=== PATIENT | male | born 1955 | race Caucasian/White ===

== ENCOUNTER 2018-03-24 16:23 | Inpatient (IN) | payer MEDICARE, MEDICAID ==
[~2018-03-24] VITALS: Ht 167.6 cm; Wt 80.0 kg
[~2018-03-24 16:23] MED LIST: FAMO-1 PO; LOVA40TA76 PO; MAGN400T29 PO; MONT10TA21 PO; MOT200T PO; OLAN2.5T3 PO; SYN0.025T PO; [UNRECOGNIZED DRUG - OTHER]; [UNRECOGNIZED DRUG - OTHER]
[2018-03-24 17:27] LABS: BASOPHILS % (AUTO) 0.4 % (0-1); EOSINOPHILS # (AUTO) 0.1 X10'3 (0-0.9); EOSINOPHILS % (AUTO) 1.5 % (0-6); HEMATOCRIT 41.2 % (42.0-52.0); HEMOGLOBIN 14.3 g/dl (14.0-17.9); LYMPHOCYTES # (AUTO) 2.3 X10'3 (1.1-4.8); MEAN CORPUSCULAR HEMOGLOBIN 31.8 PG (27.0-31.0); MEAN CORPUSCULAR HGB CONC 34.6 % (33.0-36.5); MEAN CORPUSCULAR VOLUME 91.8 FL (78-98); MEAN PLATELET VOLUME 6.4 FL (7.4-10.4); MONOCYTES # (AUTO) 0.6 X10'3 (0-0.9); MONOCYTES % (AUTO) 7.5 % (2-12); NEUTROPHILS # (AUTO) 5.4 X10'3 (1.8-7.7); NEUTROPHILS % (AUTO) 63.6 % (42-75); PLATELET COUNT 251 X10'3 (140-440); RED BLOOD COUNT 4.49 X10'6 (4.70-6.10); RED CELL DISTRIBUTION WIDTH 13.8 % (11.5-14.5); WHITE BLOOD COUNT 8.5 X10'3 (4.5-11.0)
[2018-03-24 17:38] LABS: INR 1.1 INR; PARTIAL THROMBOPLASTIN TIME 30 SECONDS (22-32); PROTHROMBIN TIME 11.2 SECONDS (9.0-12.0)
[2018-03-24 17:41] LABS: ALANINE AMINOTRANSFERASE 37 U/L (12-78); ALBUMIN 3.9 G/DL (3.4-5.0); ALKALINE PHOSPHATASE 68 IU/L (46-116); ANION GAP 7 (8-16); ASPARTATE AMINO TRANSFERASE 26 U/L (10-37); BILIRUBIN,TOTAL 0.4 MG/DL (0.1-1.0); BLOOD UREA NITROGEN 19 MG/DL (7-18); BUN/CREATININE RATIO 11.8 (5.4-32.0); CALCIUM 9.2 MG/DL (8.5-10.1); CHLORIDE 98 MMOL/L (99-107); CREATININE 1.61 MG/DL (0.60-1.10); GLUCOSE 112 MG/DL (70-104); POTASSIUM 3.7 MMOL/L (3.5-5.1); SODIUM 133 MMOL/L (135-145); TOTAL CARBON DIOXIDE 27.7 MMOL/L (24-32); TOTAL PROTEIN 7.8 G/DL (6.4-8.2); eGFR 44 ML/MIN
[2018-03-24 17:44] LABS: TROPONIN I < 0.04 NG/ML (0.0-0.05)
[2018-03-24 18:57] VITALS: BP 200/95
[2018-03-24] MEDS ORDERED: normal saline 1000ml 1,000 ML IV SCH (19:09)
[2018-03-24] MEDS ORDERED: acetaminophen 325mg tablet PO PRN (19:10)
[2018-03-24] MEDS ORDERED: enoxaparin 40mg/0.4ml syringe SQ SCH (19:10)
[2018-03-24] MEDS ORDERED: MONT4TAB11 PO (19:34)
[2018-03-24] MEDS ORDERED: OLAN5TAB5 PO (19:34)
[2018-03-24] MEDS ORDERED: CHOL10002 PO (19:34)
[2018-03-24] MEDS ORDERED: LEVO25TA2 PO (19:34)
[2018-03-24] MEDS ORDERED: DIVA500T7 PO (19:34)
[2018-03-24] MEDS ORDERED: MULT-16 PO (19:34)
[2018-03-24] MEDS ORDERED: LOVA20TA2 PO (19:34)
[2018-03-24] MEDS ORDERED: SENN-93 PO (19:34)
[2018-03-24] MEDS ORDERED: FAMO40TA58 PO (19:34)
[2018-03-24] MEDS ORDERED: MAGN400C PO (19:34)
[2018-03-24 19:35] LABS: HEMOGLOBIN A1C 5.5 % (4.5-6.2)
[2018-03-24] MEDS ORDERED: LORazepam 2 mg/ml vial IV ONE (20:10)
[2018-03-24] MEDS ORDERED: atorvastatin 10mg tablet PO SCH (21:00)
[2018-03-24] MEDS ORDERED: PRED20TA PO (22:00)
[2018-03-24] MEDS ORDERED: VALA10002 PO (22:00)
[2018-03-25] MEDS ORDERED: levoTHYROXINE 25mcg tablet PO SCH (07:00)
[2018-03-25] MEDS ORDERED: OLANZapine 5mg rapidly disint. tablet PO SCH (08:00)
[2018-03-25] MEDS ORDERED: montelukast 10mg tablet PO SCH (08:00)
[2018-03-25] MEDS ORDERED: aspirin 81mg tablet.DR PO SCH (08:00)
[2018-03-25] MEDS ORDERED: olanzapine 10mg tablet PO SCH (08:00)
[2018-03-25] MEDS ORDERED: famotidine 20mg tablet PO SCH (08:00)
== END 2018-03-24 22:18 | disposition home or self-care (01) | DRG 74 ==
LOC: ER 16:24 → ED HOLD 19:09 → ORTHO 4S 20:50
PROVIDERS: ADMIT Family Medicine; ATTEND Family Medicine
DX: G51.0 Bell's palsy (principal); F06.0 Psychotic disorder with hallucinations due to known physiological condition; E03.9 Hypothyroidism, unspecified; E78.5 Hyperlipidemia, unspecified; F79 Unspecified intellectual disabilities; I10 Essential (primary) hypertension
CPT/HCPCS: 36415; 70450; 71045; 80053; 83036; 84443; 84484; 85025; 85610; 85730; 93005; 99285; J2060; J3490; J7030

== ENCOUNTER 2018-07-06 12:18 | Outpatient (CLI) | payer MEDICARE, MEDICAID ==
[~2018-07-06 12:18] MED LIST changes: +CHOL10002 PO; +DIVA-76 PO; -FAMO-1 PO; +FAMO40TA58 PO; +LEVO25TA2 PO; +LOVA20TA2 PO; -LOVA40TA76 PO; +MAGN400C PO; -MAGN400T29 PO; -MONT10TA21 PO; +MONT4TAB11 PO; -MOT200T PO; +MULT-16 PO; -OLAN2.5T3 PO; +OLAN5TAB5 PO; +SENN-93 PO; -SYN0.025T PO; +VALA10002 PO
== END 2018-07-06 23:59 | disposition home or self-care (01) ==
LOC: CARD DIAG 12:18
PROVIDERS: ATTEND Nurse Practitioner
DX: I51.7 Cardiomegaly (principal); G25.0 Essential tremor; R01.1 Cardiac murmur, unspecified
CPT/HCPCS: 93306